=== PATIENT | male | born 1975 | race African-American/Black ===

== ENCOUNTER 2023-08-27 07:50 | Day surgery (SDC) | payer OTHER ==
[2023-08-25 12:04] VITALS: BMI 36.6
[2023-08-27 08:29] VITALS: RESP 16
[2023-08-27] MEDS ORDERED: BUPIVACAINE HCL/PF 2.5 MG/ML - 30 ML VIAL IJ ONE (08:30)
[2023-08-27] MEDS ORDERED: LIDOCAINE HCL/PF 2% SDV 5ML VIAL ONE (09:22)
[2023-08-27] MEDS ORDERED: PROPOFOL 20 ML ONE ×3 (09:23→12:14)
[2023-08-27] MEDS ORDERED: MIDAZOLAM HCL 2 MG/2 ML SINGLE DOSE VIAL ONE (09:23)
[2023-08-27] MEDS ORDERED: BUPIVACAINE HCL/PF 0.5% (5MG/ML) 10 ML VIAL ONE (09:32)
[2023-08-27] MEDS ORDERED: DEXAMETHASONE SOD PHOSPHATE 4 MG/1 ML VIAL ONE (10:04)
[2023-08-27] MEDS ORDERED: ceFAZolin SODIUM 1 GM VIAL ONE (10:04)
[2023-08-27] MEDS ORDERED: TRANEXAMIC ACID 1000 MG/10 ML VIAL ONE (10:15)
[2023-08-27] MEDS ORDERED: ONDANSETRON 4 MG/2 ML VIAL ONE (11:15)
[2023-08-27] MEDS ORDERED: KETOROLAC TROMETHAMINE 30 MG/1 ML VIAL ONE (11:15)
[2023-08-27] MEDS ORDERED: ONDANSETRON 4 MG/2 ML VIAL IVPUSH PRN (12:37)
[2023-08-27] MEDS ORDERED: oxyCODONE HCL 5 MG TABLET PO PRN ×2 (12:37)
[2023-08-27] MEDS ORDERED: ACETAMINOPHEN 1000 MG/100 ML BAG IVPB ONE (12:38)
[2023-08-27] MEDS ORDERED: FENTANYL CITRATE/PF 50 MCG/ML VIAL ONE ×2 (12:42→13:24)
[2023-08-27] MEDS ORDERED: LACTATED RINGERS SOLUTION 1,000 ML IV SCH (12:45)
[2023-08-27] MEDS ORDERED: oxyCODONE HCL 5 MG TABLET ONE (13:50)
[2023-08-27 14:01] VITALS: TEMP 97.5
[2023-08-27 14:38] VITALS: BP 109/64; PULSE 88
== END 2023-08-27 14:35 | disposition home or self-care (01) ==
LOC: FASU 07:50
PROVIDERS: ATTEND Orthopaedic Surgery Sports Medicine
PROC: 0LQL0ZZ Repair Right Upper Leg Tendon, Open Approach (ICD-10-PCS; principal; 2023-08-27 10:26)
DX: S76.111A Strain of right quadriceps muscle, fascia and tendon, initial encounter (principal); X58.XXXA Exposure to other specified factors, initial encounter; Y93.9 Activity, unspecified; Y92.9 Unspecified place or not applicable
CPT/HCPCS: 82962; 94760; C1713